=== PATIENT | female | born 2000 | race African-American/Black ===

== ENCOUNTER 2023-11-01 10:36 | Emergency (ER) | payer MEDICAID ==
[~2023-11-01] VITALS: Ht 172.7 cm; Wt 50.0 kg
[2023-11-01 10:39] VITALS: O2SAT 100
[2023-11-01 11:34] LABS: HEMOGLOBIN. 10.3 g/dL (12.0-16.0); MEAN CORPUSCULAR HGB CONC 32.3 g/dL (31.0-37.0); MEAN CORPUSCULAR VOLUME 65.1 fL (81.0-99.0); PLATELET 442 x1000/uL (130-400); RED BLOOD CELL COUNT 4.92 mill/uL (4.2-5.4); RED CELL DISTRIBUTION WIDTH 22.7 % (11.6-14.6); WHITE BLOOD COUNT 5.9 x1000/uL (4.5-11.0)
[2023-11-01 11:44] LABS: DIFFERENTIAL COMMENT 1
[2023-11-01 12:11] LABS: CHLORIDE 112 mEq/L (98-107); POTASSIUM 3.8 mEq/L (3.5-5.1); SODIUM 141 mEq/L (136-145)
[2023-11-01 12:12] LABS: CARBON DIOXIDE 25 mEq/L (21-32)
[2023-11-01 12:17] LABS: CREATININE 0.7 mg/dL (0.6-1.0); GLUCOSE 74 mg/dL (70-105); UREA NITROGEN BLOOD 7 mg/dL (9-23)
[2023-11-01 12:19] LABS: ACETAMINOPHEN < 2 ug/mL (10-30)
[2023-11-01 12:25] LABS: ETHANOL BLOOD < 10 mg/dL (<10)
[2023-11-01 12:39] LABS: HCG SCREEN NEGATIVE
[2023-11-01 13:16] LABS: CALCIUM 9.4 mg/dL (8.7-10.4)
[2023-11-01 14:01] LABS: CLARITY URINE CLEAR (CLEAR); COLOR URINE YELLOW (YELLOW); GLUCOSE URINE NEGATIVE (NEGATIVE); KETONES URINE NEGATIVE (NEGATIVE); LEUKOCYTE ESTERASE URINE TRACE (NEGATIVE); NITRITE URINE NEGATIVE (NEGATIVE); OCCULT BLOOD URINE 2+ (NEGATIVE); PH URINE 5.5 (4.5-8.0); PROTEIN URINE NEGATIVE (NEGATIVE); SPECIFIC GRAVITY URINE 1.022 (1.005-1.030)
[2023-11-01 14:17] LABS: *AMPHETAMINES SCREEN URINE PRESUMPTIVE POSITIVE (NEGATIVE)
[2023-11-01 14:18] LABS: *BARBITURATES SCREEN URINE NEGATIVE (NEGATIVE); *BENZODIAZEPINES SCREEN URINE NEGATIVE (NEGATIVE); *COCAINE SCREEN URINE NEGATIVE (NEGATIVE); CANNABINOID URINE SCREEN PRESUMPTIVE POSITIVE (NEGATIVE); ECSTASY MDMA SCREEN URINE NEGATIVE (NEGATIVE); METHADONE URINE SCREEN NEGATIVE (NEGATIVE); OPIATES URINE SCREEN NEGATIVE (NEGATIVE); PHENCYCLIDINE URINE SCREEN NEGATIVE (NEGATIVE)
[2023-11-01 14:27] LABS: SQUAMOUS EPITHELIAL CELL URINE 2+ /lpf (RARE/1+)
[2023-11-01 14:28] LABS: BACTERIA URINE 1+; RBC URINE 0-2 /hpf (0-2)
[2023-11-01 15:19] LABS: ANISOCYTOSIS 3+; MICROCYTOSIS 3+; PLATELET ESTIMATE INCREASED
[2023-11-01] MEDS: CEPHALEXIN 250MG CAPSULE PO SCH (18:44)
[2023-11-02 13:08] VITALS: BP 100/59; PULSE 64; RESP 14; TEMP 98
[2023-11-02] MEDS ORDERED: NITR-87 MT (13:16)
[2023-11-02] MEDS ORDERED: TOPUD MT (13:16)
== END 2023-11-02 14:15 | disposition home or self-care (01) ==
LOC: ER 10:36
DX: R45.851 Suicidal ideations (principal); Z20.822 Contact with and (suspected) exposure to COVID-19
CPT/HCPCS: 36415; 80048; 80305; 80307; 80320; 80329; 81003; 84703; 85025; 87426; 99285; G0480